=== PATIENT | female | born 1960 | race Asian ===

== ENCOUNTER 2019-02-24 17:52 | Emergency (ER) | payer MEDICAID ==
--- NOTE | 2019-02-24 18:04 | Event Note ---
ED Screening Note Date of service: 02/24/19 Time: 18:02 ED Screening Note: Pt complains left leg pain x 1 week. Hx of DVT in same leg, This initial assessment/diagnostic orders/clinical plan/treatment(s) is/are subject to change based on patients health status, clinical progression and re-assessment by fellow clinical providers in the ED. Further treatment and workup at subsequent clinical providers discretion. Patient/guardian urged not to elope from the ED as their condition may be serious if not clinically assessed and managed. Initial orders include:
--- NOTE | 2019-02-24 20:14 | XRay Report ---
CHEST 2 VIEWS INDICATION / CLINICAL INFORMATION: BLE. COMPARISON: None available. FINDINGS: SUPPORT DEVICES: None. HEART / MEDIASTINUM: No significant abnormality. LUNGS / PLEURA: No significant pulmonary or pleural abnormality. No pneumothorax. ADDITIONAL FINDINGS: No significant additional findings. IMPRESSION: 1. No acute findings. Signer Name: Prosper Mancini MD Signed: 02/24/2019 8:09 PM Workstation Name: [id number]
--- NOTE | 2019-02-24 20:15 | XRay Report ---
LEFT TIBIA-FIBULA 2 VIEW(S) INDICATION / CLINICAL INFORMATION: Pain and swelling COMPARISON: None available. FINDINGS: BONES / JOINT(S): No acute fracture or subluxation. No significant arthritis. SOFT TISSUES: No significant abnormality. ADDITIONAL FINDINGS: None. Signer Name: Prosper Mancini MD Signed: 02/24/2019 8:10 PM Workstation Name: [id number]
--- NOTE | 2019-02-24 20:40 | Emergency Department Report ---
ED General Adult HPI - General Chief complaint: Extremity Injury, Lower Stated complaint: L LEG BLOOD CLOT/LOWER BACK PAIN Time Seen by Provider: 02/24/19 19:31 Source: patient Mode of arrival: Ambulatory Limitations: No Limitations - History of Present Illness Initial comments: pt is a 58 y/o aaf with hx of DVT LLE, who presents for LLE and calf pain x 1 week. Pt was seen by pcp Dr. Bah today , and sent to ed for rule out dvt, pt denies sob, no cough , no cp, no hemoptysis , pt is not on antcoagulation therapy, states pain increase with palpation, and prolonged ambulation, there is no numbness or weakness . Onset/Timin -: week(s) Location: lower extremity Radiation: extremity Severity scale (0 -10): 5 Quality: aching, sharp Consistency: intermittent Improves with: rest Worsens with: movement Associated Symptoms: denies: chest pain, cough, shortness of breath, weakness Treatments Prior to Arrival: none - Related Data Previous Rx's Medication Instructions Recorded Last Taken Type Acetaminophen [Acetaminophen TAB] 1,000 mg PO Q6HR PRN #30 tablet 02/24/19 Unknown Rx Allergies Allergy/AdvReac Type Severity Reaction Status Date / Time metronidazole [From Flagyl] Allergy Angioedema Verified 02/24/19 18:04 ED Review of Systems ROS: Stated complaint: L LEG BLOOD CLOT/LOWER BACK PAIN Other details as noted in HPI Constitutional: denies: chills, fever Eyes: denies: eye pain, eye discharge, vision change ENT: denies: ear pain, throat pain Respiratory: denies: cough, shortness of breath, wheezing Cardiovascular: denies: chest pain, palpitations Endocrine: no symptoms reported Gastrointestinal: denies: abdominal pain, nausea, vomiting, diarrhea Genitourinary: denies: urgency, dysuria Musculoskeletal: myalgia (LLE pain swelling ). denies: back pain, joint swelling, arthralgia Skin: denies: rash, lesions Neurological: denies: headache, weakness, paresthesias Psychiatric: denies: anxiety, depression Hematological/Lymphatic: denies: easy bleeding, easy bruising ED Past Medical Hx - Social History Smoking Status: Never Smoker Substance Use Type: None - Medications Home Medications: Home Medications Medication Instructions Recorded Confirmed Last Taken Type Acetaminophen [Acetaminophen TAB] 1,000 mg PO Q6HR PRN #30 tablet 02/24/19 Unknown Rx ED Physical Exam - General Limitations: No Limitations General appearance: alert, in no apparent distress - Head Head exam: Present: atraumatic, normocephalic - Eye Eye exam: Present: normal appearance, EOMI Pupils: Present: normal accommodation - ENT ENT exam: Present: mucous membranes moist - Neck Neck exam: Present: normal inspection, full ROM. Absent: tenderness, meningismus, lymphadenopathy, thyromegaly - Respiratory Respiratory exam: Present: normal lung sounds bilaterally. Absent: respiratory distress, wheezes, rales, rhonchi, stridor, chest wall tenderness - Cardiovascular Cardiovascular Exam: Present: regular rate, normal rhythm, normal heart sounds. Absent: systolic murmur, diastolic murmur, rubs, gallop - GI/Abdominal GI/Abdominal exam: Present: soft, normal bowel sounds. Absent: distended, t enderness, bruit, hernia - Rectal Rectal exam: Present: deferred - Extremities Exam Extremities exam: Present: normal inspection, full ROM, tenderness (left posterior calf ), normal capillary refill, calf tenderness, other (pain with dorsoflexion, ppepb+2, no pitting edema ). Absent: pedal edema, joint swelling - Expanded Lower Extremity Exam Left Lower Leg exam: Present: full ROM, tenderness, swelling. Absent: abrasion, laceration, ecchymosis, deformity, crepidus, dislocation, erythema, palpable cord, Kvng's sign Ankle exam: Present: normal inspection, full ROM. Absent: tenderness Foot/Toe exam: Present: full ROM. Absent: tenderness Neuro vascular tendon exam: Absent: pulse deficit, motor deficit, sensory deficit, tendon deficit, foot drop Gait: Positive: observed and limited by pain - Back Exam Back exam: Present: normal inspection, full ROM. Absent: tenderness, CVA tenderness (R), CVA tenderness (L), rash noted - Neurological Exam Neurological exam: Present: alert, oriented X3, CN II-XII intact, normal gait, reflexes normal. Absent: motor sensory deficit - Psychiatric Psychiatric exam: Present: normal affect, normal mood - Skin Skin exam: Present: warm ED Course Vital Signs 02/24/19 18:02 Temperature 98.0 F Pulse Rate 75 Respiratory 16 Rate Blood Pressure 121/76 O2 Sat by Pulse 100 Oximetry ED Medical Decision Making - Lab Data Result diagrams: 02/24/19 20:20 02/24/19 20:20 Labs 02/24/19 02/24/19 02/24/19 20:20 20:20 20:20 WBC 3.6 L RBC 4.28 Hgb 11.9 Hct 36.2 MCV 85 MCH 28 MCHC 33 RDW 14.4 Plt Count 180 PT 14.3 INR 1.14 H APTT 29.5 Sodium 144 Potassium 3.6 Chloride 107.1 H Carbon Dioxide 25 Anion Gap 16 BUN 13 Creatinine 1.0 Estimated GFR > 60 BUN/Creatinine Ratio 13 Glucose 82 Calcium 8.9 - Radiology Data Radiology results: report reviewed, image reviewed cxr normal, no infiltrates no opacities tib/fib xray: no fracture normal xray - Medical Decision Making cxr normal, le xray normal, labs norm, cmp, cbc, pt, inr, pttt, wells dvt score is :0, leg pain is chronic for this patient, plan lovenox SQ in ed, pt will return to ed in am for LE Doppler Study, pt verbalized agreement and understanding of discharge plan. Critical care attestation.: If time is entered above; I have spent that time in minutes in the direct care of this critically ill patient, excluding procedure time. ED Disposition Clinical Impression: Leg pain, left Disposition: DC-01 TO HOME OR SELFCARE Is pt being admited?: No Does the pt Need Aspirin: No Condition: Stable Instructions: Arthralgia (ED), Musculoskeletal Pain (ED) Additional Instructions: continue percocet as rx by your pcp Dr Bah as needed for pain , Return in am for Doppler Study of left leg. Prescriptions: Acetaminophen [Acetaminophen TAB] 1,000 mg PO Q6HR PRN #30 tablet PRN Reason: Pain Referrals: JAIME DUNHAM MD [Staff Physician] - 3-5 Days Forms: Work/School Release Form(ED) Time of Disposition: 21:35
[2019-02-24 20:41] LABS: Hematocrit 36.2 % (35.5-45.6); Hemoglobin 11.9 gm/dl (11.8-15.2); Mean Corpuscular HGB Conc 33 % (32-34); Mean Corpuscular Volume 85 fl (84-94); Platelet Count 180 K/mm3 (140-440); Red Blood Count 4.28 M/mm3 (3.65-5.03); Red Cell Distribution Width 14.4 % (13.2-15.2)
[2019-02-24] MEDS ORDERED: NORCO 5/325 PO ONE (20:43)
[2019-02-24 20:56] LABS: INR 1.14 (0.87-1.13)
[2019-02-24 20:57] LABS: Partial Thromboplastin Time 29.5 Sec. (24.2-36.6)
[2019-02-24 20:58] LABS: BUN/Creatinine Ratio 13; Blood Urea Nitrogen 13 mg/dL (9-20); Calcium 8.9 mg/dL (8.4-10.2); Hemolysis Index 8
[2019-02-24] MEDS ORDERED: LOVENOX SUB-Q ONE (21:23)
[2019-02-24 22:18] VITALS: BP 133/86
== END 2019-02-24 22:16 | disposition home or self-care (01) ==
LOC: EDSEX → ED 17:52
DX: M79.605 Pain in left leg (principal); Z88.1 Allergy status to other antibiotic agents
CPT/HCPCS: 36415; 71046; 73590; 80048; 85027; 85610; 85730; 96372; 99284; J1650

== ENCOUNTER 2019-02-25 12:12 | Emergency (ER) | payer MEDICAID ==
--- NOTE | 2019-02-25 12:25 | Event Note ---
ED Screening Note Date of service: 02/25/19 Time: 12:25 ED Screening Note: This is a 58 y.o. F. that presents to the ER with LLE pain and swelling. Patient seen in this ER last night and instructed to return this morning for doppler of LLE to r/o DVT. PMH of DVT of LLE, DJD of joints, This initial assessment/diagnostic orders/clinical plan/treatment(s) is/are subject to change based on patients health status, clinical progression and re- assessment by fellow clinical providers in the ED. Further treatment and workup at subsequent clinical providers discretion. Patient/guardian urged not to elope from the ED as their condition may be serious if not clinically assessed and managed. Initial orders include: Duplex doppler of LLE
[2019-02-25 12:28] VITALS: BP 133/82
--- NOTE | 2019-02-25 14:05 | Vascular Lab Report ---
DUPLEX DOPPLER LOWER EXTREMITY VEINS, LEFT INDICATION / CLINICAL INFORMATION: Concern for lower extremity deep venous thrombosis. TECHNIQUE: Duplex doppler imaging was performed through the veins of the left lower extremity using venous compr ession and other maneuvers. COMPARISON: None available. FINDINGS: COMMON FEMORAL VEIN: Negative. FEMORAL VEIN: Negative. POPLITEAL VEIN: Negative. CALF VEINS: Negative. ADDITIONAL FINDINGS: None. IMPRESSION: 1. No sonographic evidence for DVT in the left lower extremity. Signer Name: Prosper Mancini MD Signed: 02/25/2019 2:00 PM Workstation Name: [id number]
--- NOTE | 2019-02-25 14:27 | Emergency Department Report ---
ED Extremity Problem HPI - General Chief complaint: Extremity Problem,Nontraumatic Stated complaint: ULTRA SOUND FOR (L) LEG BLOOD CLOT Time Seen by Provider: 02/25/19 12:24 Source: patient Mode of arrival: Ambulatory Limitations: No Limitations - History of Present Illness Initial comments: 58-year-old -[place] female presents to the emergency room for an ultrasound that was ordered for her last night to have done this morning. Patient came in last night for left leg pain. Patient was discharged with a prescription acetaminophen and to continue taken Percocet. MD Complaint: extremity pain Location: left, lower extremity Severity scale (0 -10): 0 - Related Data Previous Rx's Medication Instructions Recorded Last Taken Type Acetaminophen [Acetaminophen TAB] 1,000 mg PO Q6HR PRN #30 tablet 02/24/19 Unknown Rx Allergies Allergy/AdvReac Type Severity Reaction Status Date / Time metronidazole [From Flagyl] Allergy Angioedema Verified 02/25/19 12:23 ED Review of Systems ROS: Stated complaint: ULTRA SOUND FOR (L) LEG BLOOD CLOT Other details as noted in HPI ED Past Medical Hx - Past Medical History Previous Medical History?: Yes Hx Asthma: Yes Additional medical history: DJD - Surgical History Past Surgical History?: Yes Additional Surgical History: left rotator cuff, x 2 - Social History Smoking Status: Never Smoker Substance Use Type: None - Medications Home Medications: Home Medications Medication Instructions Recorded Confirmed Last Taken Type Acetaminophen [Acetaminophen TAB] 1,000 mg PO Q6HR PRN #30 tablet 02/24/19 Unknown Rx ED Physical Exam - General Limitations: No Limitations ED Course Vital Signs 02/25/19 12:25 Temperature 98.4 F Pulse Rate 72 Respiratory 18 Rate Blood Pressure 133/82 [Left] O2 Sat by Pulse 100 Oximetry ED Medical Decision Making - Radiology Data Radiology results: report reviewed Patient: AZAEL TATUM MR#: [id number] : 1960 Acct:[id number] Age/Sex: 58 / F ADM Date: 02/25/19 Loc: ED Attending Dr: Ordering Physician: AMANDA CHAVEZ Date of Service: 02/25/19 Procedure(s): VL venous duplex LE LT Accession Number(s): [id number] cc: AMANDA CHAVEZ DUPLEX DOPPLER LOWER EXTREMITY VEINS, LEFT INDICATION / CLINICAL INFORMATION: Concern for lower extremity deep venous thrombosis. TECHNIQUE: Duplex doppler imaging was performed through the veins of the left lower extremity using venous compression and other maneuvers. COMPARISON: None available. FINDINGS: COMMON FEMORAL VEIN: Negative. FEMORAL VEIN: Negative. POPLITEAL VEIN: Negative. CALF VEINS: Negative. ADDITIONAL FINDINGS: None. IMPRESSION: 1. No sonographic evidence for DVT in the left lower extremity. Signer Name: Prosper Mancini MD Signed: 02/25/2019 2:00 PM Workstation Name: [id number] Transcribed By: FEDE Dictated By: Prosper Mancini MD Electronically Authenticated By: Prosper Mancini MD Signed Date/Time: 02/25/19 1400 DD/ 1359 TD/TT: Critical care attestation.: If time is entered above; I have spent that time in minutes in the direct care of this critically ill patient, excluding procedure time. ED Disposition Clinical Impression: Leg pain, left Disposition: Z-07 PAT REG,NO TRIAGE Does the pt Need Aspirin: No Condition: Stable Additional Instructions: Ultrasound shows no DVT/deep vein thrombosis. Continue with medication that was prescribed U last night and by her primary care provider. Follow up with her primary care provider if any further concerns. Referrals: PRIMARY CAREMD [Primary Care Provider] - 3-5 Days
== END 2019-02-25 15:27 | disposition left against medical advice (07) ==
LOC: EDSEX → ED 12:12
DX: M79.605 Pain in left leg (principal); J45.909 Unspecified asthma, uncomplicated; Z88.1 Allergy status to other antibiotic agents